=== PATIENT | male | born 2000 | race Two or more races ===

== ENCOUNTER 2020-08-14 20:21 | Emergency (ER) | payer MEDICAID ==
[~2020-08-14] VITALS: Ht 175.3 cm; Wt 92.7 kg
[2020-08-14] MEDS ORDERED: KETOROLAC TROMETHAMINE 60 MG/2 ML VIAL IM ONE (22:00)
[2020-08-14] MEDS ORDERED: CYCLOBENZAPRINE HCL 10 MG TABLET PO ONE (22:15)
[2020-08-14 22:45] VITALS: BP 120/86
== END 2020-08-14 22:54 | disposition home or self-care (01) ==
LOC: EMS 20:24
DX: S39.012A Strain of muscle, fascia and tendon of lower back, initial encounter (principal); W18.39XA Other fall on same level, initial encounter; Y93.67 Activity, basketball; Y92.89 Other specified places as the place of occurrence of the external cause; Y99.8 Other external cause status
CPT/HCPCS: 96372; 99283; J1885